=== PATIENT | female | born 2000 | race Caucasian/White ===

== ENCOUNTER 2018-11-09 14:58 | Emergency (ER) | payer MEDICAID ==
[~2018-11-09] VITALS: Ht 167.6 cm; Wt 68.0 kg
[2018-11-09] MEDS ORDERED: PRED10 PO (15:47)
[2018-11-09] MEDS ORDERED: TRIA15CR3 TOP (15:47)
== END 2018-11-09 15:55 | disposition home or self-care (01) ==
LOC: ER 14:58
DX: L25.9 Unspecified contact dermatitis, unspecified cause (principal)
CPT/HCPCS: 99282

== ENCOUNTER 2020-04-30 09:34 | Emergency (ER) | payer SELFPAY ==
[~2020-04-30] VITALS: Ht 162.6 cm; Wt 61.2 kg
[~2020-04-30 09:34] MED LIST: PRED10 PO; TRIA15CR3 TOP
== END 2020-04-30 13:41 | disposition left against medical advice (07) ==
LOC: ER 09:34
DX: Z53.21 Procedure and treatment not carried out due to patient leaving prior to being seen by health care provider (principal)